=== PATIENT | female | born 1985 | race Caucasian/White ===

== ENCOUNTER → 2017-03-22 07:04 | Outpatient (CLI) | payer BC, SELFPAY | PROVIDERS: Visit Provider Nurse Practitioner Women's Health | DX: Z12.4 Encounter for screening for malignant neoplasm of cervix (principal) ==

== ENCOUNTER → 2019-06-21 | Outpatient (CLI) | payer BC, SELFPAY ==
[2019-04-06 10:25] VITALS: BMI 32.5
[2019-06-21 18:04] LABS: Anion Gap 8 (5-15); BUN 26 mg/dL (7-18); BUN/Creat Ratio 27.9 RATIO (10-20); Calcium,Total 9.1 mg/dL (8.5-10.1); Chloride 103 mmol/L (98-107); Cholesterol 183 mg/dL (200); Creatinine, Serum 0.93 mg/dL (0.55-1.02); EST Glomerular Filtration Rate 74 mL/min (>60); Est Glom Filt Rate - Afr Amer 89 mL/min (>60); Glucose 90 mg/dL (74-106); High Density Lipoprotein 55 mg/dL; Potassium 3.9 mmol/L (3.5-5.1); Sodium Level 139 mmol/L (136-145); Triglycerides 87 mg/dL; Very Low Density Lipoprotein 17 mg/dL (5-40)
== END | disposition home or self-care (01) ==
LOC: MTLAB 16:21
PROVIDERS: PCP Family Medicine; Referring Provider Family Medicine; Visit Provider Family Medicine
DX: Z00.00 Encounter for general adult medical examination without abnormal findings (principal)
CPT/HCPCS: 36415; 80048; 80061

== ENCOUNTER → 2019-06-29 11:37 | Outpatient (CLI) | payer BC, SELFPAY ==
[2019-04-06 10:25] VITALS: BMI 32.5
--- NOTE | 2019-06-29 11:37 | LES_PTH ---
PATIENT: ANDREW VIEYRA LOC: [facility] U#:[id number] AGE/SX: 39/F ROOM: RE06/29/[address]: Dr. Kevin Pineda MD : [id number] BED: DIS: SPEC #: [id number] RECD: 06/29/19 17:15 STATUS: DUANE MACY #: [id number] SYED: 06/29/19 11:[address]: Kevin Pineda DEPT: SURGICAL PATHOLOGY RECD BY: Avni Gunderson ENTERED: 06/30/19 11:35 SP TYPE: Lesion OTHR DR: Dr. Des Chacko MD Tissues: Skin of eyelid, NOS Procedures: Surgery Specimen Level IV HEADER OPERATION: Excision right conjunctival pigmented lesion PRE-OP DIAGNOSIS: Conjunctival melanosis OD TISSUE SUBMITTED: Right conjunctival pigmented lesion MICROSCOPIC DIAGNOSIS Right conjunctival pigmented lesion, excisional biopsy: Consistent with melanosis. Negative for malignancy. SJ:kassandra 07/04/19 COMMENT Case has been reviewed in consultation with Dr. [place] who concurs with the above diagnosis. IDC:AM MICROSCOPIC DESCRIPTION Slides are reviewed. GROSS DESCRIPTION Received in fixative is one container labeled with the patient's name and designated right conjunctival pigmented lesion. The specimen consists of a piece of brown soft tissue measuring 0.3 x 0.2 x 0.1 cm. The specimen is totally submitted in one cassette. / SJ:kassandra 06/30/19 TC:5 CPT: 37397
== END ==
PROVIDERS: PCP Family Medicine; Visit Provider Ophthalmology
DX: H11.139 Conjunctival pigmentations, unspecified eye (principal)
CPT/HCPCS: 88305

== ENCOUNTER → 2022-04-03 | Outpatient (CLI) | payer OTHER, SELFPAY ==
[2022-04-03 10:32] LABS: Anion Gap 6 (5-15); BUN 19 mg/dL (7-18); BUN/Creat Ratio 22.9 RATIO (10-20); Calcium,Total 9.1 mg/dL (8.5-10.1); Chloride 105 mmol/L (98-107); Cholesterol 193 mg/dL (200); Creatinine, Serum 0.83 mg/dL (0.55-1.02); EST Glomerular Filtration Rate 83 mL/min (>60); Est Glom Filt Rate - Afr Amer 101 mL/min (>60); Glucose 94 mg/dL (74-106); High Density Lipoprotein 48 mg/dL; Potassium 4.1 mmol/L (3.5-5.1); Sodium Level 139 mmol/L (136-145); Triglycerides 96 mg/dL; Very Low Density Lipoprotein 19 mg/dL (5-40)
== END | disposition home or self-care (01) ==
PROVIDERS: PCP Family Medicine; Referring Provider Family Medicine; Visit Provider Family Medicine
DX: Z13.1 Encounter for screening for diabetes mellitus (principal); Z13.220 Encounter for screening for lipoid disorders
CPT/HCPCS: 36415; 80048; 80061

== ENCOUNTER → 2022-05-04 | Outpatient (CLI) | payer OTHER, SELFPAY ==
[2022-05-12 16:34] LABS: HPV APTIMA, High Risk Negative (Negative)
== END | disposition home or self-care (01) ==
LOC: LABSPEC 16:22
PROVIDERS: PCP Family Medicine; Referring Provider Nurse Practitioner Women's Health; Visit Provider Nurse Practitioner Women's Health
DX: Z12.4 Encounter for screening for malignant neoplasm of cervix (principal)
CPT/HCPCS: 87624; 88175; G0145

== ENCOUNTER → 2022-12-03 | Outpatient (CLI) | payer OTHER, SELFPAY ==
[2022-12-03 15:26] LABS: Hematocrit 40.9 % (37-47); Hemoglobin 14.1 g/dL (12.0-15.0); Mean Corp Hgb Conc 34.5 g/dL (32-36); Mean Corpuscular Hgb 31.6 pg (27.0-32.0); Mean Corpuscular Volume 91.7 fL (81-99); Mean Platelet Vol. 10.9 fl (6.2-12.0); Platelet Count 281 K/mm3 (150-450); RBC Distribution Width SD 40.4 fl (35.1-43.9); Red Blood Count 4.46 M/mm3 (4.2-5.4); White Blood Count 6.1 K/mm3 (4.4-11.0)
[2022-12-03 15:32] LABS: Erythrocyte Sedimentation Rate 4 mm/hr (0-30)
[2022-12-03 15:42] LABS: Vitamin B12 392 pg/mL (211-911); Vitamin D,25 Hydroxy 35.8 ng/mL
[2022-12-03 18:06] LABS: Estradiol 61.7 pg/mL; Ferritin 69 ng/mL (8-252); Follicle Stimulating Hormone 7.7 mIU/mL; Free T3 3.1 pg/mL (2.18-3.98); Iron 95 ug/dL (50-170); Luteinizing Hormone 20.8 mIU/mL; Thyroid Stim Hormone (TSH) 0.77 uIU/mL (0.358-3.74)
== END | disposition home or self-care (01) ==
LOC: MFPLAB 12:08
PROVIDERS: PCP Family Medicine; Visit Provider Family Medicine
DX: R53.83 Other fatigue (principal); R23.2 Flushing; E28.2 Polycystic ovarian syndrome
CPT/HCPCS: 36415; 82306; 82533; 82607; 82670; 82728; 83001; 83002; 83036; 83540; 84403; 84439; 84443; 84481; 85027; 85652

== ENCOUNTER → 2024-03-31 | Outpatient (CLI) | payer OTHER, SELFPAY ==
[2024-03-31 10:47] LABS: Anion Gap 5 (5-15); BUN 18 mg/dL (7-18); BUN/Creat Ratio 19.7 RATIO (10-20); Calcium,Total 9.5 mg/dL (8.5-10.1); Chloride 106 mmol/L (98-107); Cholesterol 182 mg/dL (200); Creatinine, Serum 0.91 mg/dL (0.55-1.02); EST Glomerular Filtration Rate 74 mL/min (>60); Est Glom Filt Rate - Afr Amer 89 mL/min (>60); Glucose 90 mg/dL (74-106); High Density Lipoprotein 47 mg/dL; Potassium 3.9 mmol/L (3.5-5.1); Sodium Level 138 mmol/L (136-145); Thyroid Stim Hormone (TSH) 0.638 uIU/mL (0.358-3.740); Triglycerides 57 mg/dL; Very Low Density Lipoprotein 11 mg/dL (5-40)
== END | disposition home or self-care (01) ==
LOC: MTLAB 08:55
PROVIDERS: PCP Family Medicine; Referring Provider Family Medicine; Visit Provider Family Medicine
DX: Z13.1 Encounter for screening for diabetes mellitus (principal); Z13.29 Encounter for screening for other suspected endocrine disorder; Z13.220 Encounter for screening for lipoid disorders
CPT/HCPCS: 36415; 80048; 80061; 84443

== ENCOUNTER → 2024-05-10 | Outpatient (CLI) | payer OTHER, SELFPAY ==
--- NOTE | 2024-05-10 10:25 | RAD_ITS ---
PROCEDURE: CERV SPINE 4 OR 5 VIEWS 05/10/2024 REASON FOR EXAM: ARM PARESTHESIAS. TECHNIQUE: 5 views of the cervical spine. Including oblique views COMPARISON: None FINDINGS: Vertebrae: Unremarkable. disc spaces: No significant disc space narrowing is seen. Alignment: Straightening of the normal cervical lordosis. soft tissues: Unremarkable Other: No evidence of neural foraminal stenosis. RAD/Cerv Spine 4 or 5 Views IMPRESSION: Loss of the normal cervical lordosis. Reading Location: [place] [id number]
== END | disposition home or self-care (01) ==
LOC: MTRAD 10:25
PROVIDERS: PCP Family Medicine; Referring Provider Family Medicine; Visit Provider Family Medicine
DX: S16.1XXA Strain of muscle, fascia and tendon at neck level, initial encounter (principal)
CPT/HCPCS: 72050